=== PATIENT | male | born 1955 | race Caucasian/White ===

== ENCOUNTER 2016-05-18 03:18 | Emergency (ER) | payer BC, OTHER ==
[2016-05-18 03:32] VITALS: TEMP 97.1
[2016-05-18 03:32] LABS: BASOPHILS % (AUTO) 1 % (0-3); EOSINOPHILS % (AUTO) 1 % (0-9); HEMATOCRIT 45 % (39-53); MEAN CORPUSCULAR HGB CONC 34.6 gm/dl (32.0-36.0); MEAN CORPUSCULAR VOLUME 89 fL (80-100); MONOCYTES % (AUTO) 6.5 % (0-12); NEUTROPHILS % (AUTO) 64.3 % (37-80)
[2016-05-18 03:45] LABS: ALBUMIN 3.6 gm/dl (3.4-5.0); ALT 15 IU/L (14-63); CALCIUM 8.3 mg/dl (8.5-10.1); GLOM FILT RATE 83 mL/min (>60); POTASSIUM 3.7 mMol/L (3.5-5.1); SODIUM 140 mMol/L (136-145)
[2016-05-18] MEDS ORDERED: CALCIUM GLUCONATE 10% 100 MG/ML SOL IV ONE ×2 (04:31→04:37)
[2016-05-18] MEDS ORDERED: SODIUM CHLORIDE 0.9% FLUSH 10 ML SOL IV PRN (05:39)
[2016-05-18 05:49] VITALS: BP 98/57; PULSE 98; RESP 21; O2SAT 98
== END 2016-05-18 06:48 | disposition short-term general hospital (02) ==
LOC: ED 03:18
DX: G45.9 Transient cerebral ischemic attack, unspecified (principal); I48.91 Unspecified atrial fibrillation; R40.2362 Coma scale, best motor response, obeys commands, at arrival to emergency department; R40.2142 Coma scale, eyes open, spontaneous, at arrival to emergency department; R40.2252 Coma scale, best verbal response, oriented, at arrival to emergency department
CPT/HCPCS: 99285 ×3; 70450; 80053; 80301; 82550; 84484; 85025; 85610; 93005; J0610; 36415; 80307; 99284

== ENCOUNTER 2018-10-30 10:55 | Outpatient (CLI) | payer BC ==
[2016-05-18 05:49] VITALS: O2SAT 98
== END 2018-10-30 10:56 | disposition home or self-care (01) | DRG 950 ==
LOC: CONVCARE 10:55
PROVIDERS: ATTEND Orthopaedic Surgery
DX: S46.012D Strain of muscle(s) and tendon(s) of the rotator cuff of left shoulder, subsequent encounter (principal)
CPT/HCPCS: 73030